=== PATIENT | female | born 1930 | race Caucasian/White ===

== ENCOUNTER 2016-12-03 11:27 | Outpatient (CLI) ==
[2016-12-03 11:50] LABS: HEMATOCRIT 35.2 % (37.0-47.0); HEMOGLOBIN 11.8 g/dl (12.0-16.0); MEAN CORPUSCULAR HGB CONC 33.5 (31.8-35.4); MEAN CORPUSCULAR VOLUME 92.4 fl (81.0-99.0); RED BLOOD COUNT 3.81 10^6/ul (4.20-5.40); WHITE BLOOD COUNT 5.99 K/ul (4.6-10.2)
[2016-12-03 11:59] LABS: BILIRUBIN,URINE Negative (NEGATIVE); KETONES,URINE Negative (NEGATIVE); LEUKOCYTE ESTERASE ,URINE Negative (NEGATIVE); NITRITE,URINE Negative (NEGATIVE); PROTEIN,URINE Negative (NEGATIVE); URINE, BLOOD Negative (NEGATIVE)
[2016-12-03 12:05] LABS: ADD URINE MICROSCOPIC NO
[2016-12-03 12:39] LABS: ALBUMIN 3.7 g/dL (3.4-5.0); ALBUMIN/GLOBULIN RATIO 1.28; ANION GAP 15.6; BILIRUBIN,TOTAL 0.75 mg/dL (0.00-1.20); BUN/CREATININE RATIO 15.03; CALCIUM 9.4 mg/dL (8.2-10.2); CREATININE 1.53 mg/dL (0.60-1.30); MAGNESIUM 1.8 mg/dL (1.7-2.2); PHOSPHORUS 3.9 mg/dL (2.8-4.1); POTASSIUM 4.6 mmol/L (3.5-5.10); TOTAL PROTEIN 6.6 g/dL (5.8-8.1); URIC ACID 6.3 mg/dL (2.4-6.0)
[2016-12-04 09:37] LABS: URINE CREATINE 13.5 mg/dL (Not Estab.)
[2016-12-04 15:55] LABS: URINE PROTEIN/CREATININE RATIO < 296 mg/g creat (0-200)
== END 2016-12-03 11:28 | disposition home or self-care (01) ==
LOC: LAB 11:27
PROVIDERS: ATTEND Nurse Practitioner
DX: N18.3 Chronic kidney disease, stage 3 (moderate) (principal); E55.9 Vitamin D deficiency, unspecified
CPT/HCPCS: 36415; 80053; 81001; 82306; 82570; 83735; 83970; 84100; 84156; 84550; 85027

== ENCOUNTER 2017-03-16 13:19 | Outpatient (CLI) ==
[2017-03-16 13:42] LABS: BASOPHILS % (AUTO) 0.5 % (0.0-3.0); EOSINOPHILS # (AUTO) 0.1 K/ul (0.0-0.7); EOSINOPHILS % (AUTO) 1.9 % (0.0-7.0); HEMATOCRIT 35.5 % (37.0-47.0); HEMOGLOBIN 11.8 g/dl (12.0-16.0); IMMATURE GRANULOCYTE % (AUTO) 0.7 % (0.0-5.0); LYMPHOCYTES # (AUTO) 1.5 K/uL (0.60-3.4); MEAN CORPUSCULAR HEMOGLOBIN 30.3 pg (27.0-31.0); MEAN CORPUSCULAR HGB CONC 33.2 (31.8-35.4); MONOCYTES # (AUTO) 0.4 K/uL (0.4-2.0); NEUTROPHILS # (AUTO) 3.8 K/ul (2.0-6.9); NEUTROPHILS % (AUTO) 64.9; PLATELET COUNT 159 10^3/uL (140-440); WHITE BLOOD COUNT 5.88 K/ul (4.6-10.2)
[2017-03-16 14:02] LABS: ALBUMIN 3.6 g/dL (3.4-5.0); ALBUMIN/GLOBULIN RATIO 1.2; ANION GAP 14.5; BILIRUBIN,TOTAL 0.75 mg/dL (0.00-1.20); BUN/CREATININE RATIO 9.79; CALCIUM 9.2 mg/dL (8.2-10.2); CREATININE 1.43 mg/dL (0.60-1.30); POTASSIUM 4.5 mmol/L (3.5-5.10); TOTAL PROTEIN 6.6 g/dL (5.8-8.1)
[2017-03-17 14:23] LABS: CARCINOEMBRYONIC ANTIGEN 2.7 ng/mL (0.0-4.7)
[2017-03-17 14:24] LABS: IMMUNOGLOBULIN M, QN, SERUM 49 mg/dL (26-217)
== END 2017-03-16 13:20 | disposition home or self-care (01) ==
LOC: LAB 13:19
PROVIDERS: ATTEND Internal Medicine Hematology & Oncology
DX: Z85.038 Personal history of other malignant neoplasm of large intestine (principal)
CPT/HCPCS: 36415; 80053; 82378; 85025; 86320

== ENCOUNTER 2017-06-02 11:15 | Outpatient (CLI) | payer OTHER ==
[2017-06-02 11:51] LABS: MEAN CORPUSCULAR HEMOGLOBIN 30.5 pg (27.0-31.0); MEAN CORPUSCULAR HGB CONC 33.3 (31.8-35.4); MEAN CORPUSCULAR VOLUME 91.4 fl (81.0-99.0); RED BLOOD COUNT 3.94 10^6/ul (4.20-5.40); WHITE BLOOD COUNT 6.18 K/ul (4.6-10.2)
[2017-06-02 11:52] LABS: BILIRUBIN,URINE Negative (NEGATIVE); KETONES,URINE Negative (NEGATIVE); LEUKOCYTE ESTERASE ,URINE 2+ (NEGATIVE); NITRITE,URINE Negative (NEGATIVE); PROTEIN,URINE Negative (NEGATIVE); URINE, BLOOD Negative (NEGATIVE)
[2017-06-02 11:57] LABS: ADD URINE MICROSCOPIC YES
[2017-06-02 11:58] LABS: BACTERIA,URINE 4+ (NOT PRESENT)
[2017-06-02 12:31] LABS: ALBUMIN 3.7 g/dL (3.4-5.0); ALBUMIN/GLOBULIN RATIO 1.37; ANION GAP 14.6; BILIRUBIN,TOTAL 0.85 mg/dL (0.00-1.20); BUN/CREATININE RATIO 10.73; CALCIUM 9.4 mg/dL (8.2-10.2); CREATININE 1.49 mg/dL (0.60-1.30); MAGNESIUM 1.9 mg/dL (1.7-2.2); POTASSIUM 4.6 mmol/L (3.5-5.10); TOTAL PROTEIN 6.4 g/dL (5.8-8.1); URIC ACID 5.8 mg/dL (2.4-6.0)
[2017-06-03 10:37] LABS: URINE CREATININE 48.7 mg/dL (Not Estab.); URINE TOTAL PROTEIN 15.7 mg/dL (Not Estab.)
== END 2017-06-02 11:16 | disposition home or self-care (01) ==
LOC: LAB 11:15
PROVIDERS: ATTEND Nurse Practitioner
DX: N18.3 Chronic kidney disease, stage 3 (moderate) (principal); E55.9 Vitamin D deficiency, unspecified
CPT/HCPCS: 36415; 80053; 81001; 82306; 82570; 83735; 83970; 84100; 84156; 84550; 85027

== ENCOUNTER 2017-11-23 10:59 | Outpatient (CLI) | END 2017-11-23 11:00 | disposition home or self-care (01) | LOC: LAB 10:59 | PROVIDERS: ATTEND Nurse Practitioner | DX: N18.3 Chronic kidney disease, stage 3 (moderate) (principal); E55.9 Vitamin D deficiency, unspecified | CPT/HCPCS: 36415; 80053; 81001; 82306; 82570; 83735; 83970; 84100; 84156; 84550; 85027 ==

== ENCOUNTER 2018-03-12 10:14 | Outpatient (CLI) | payer OTHER | END 2018-03-12 10:15 | disposition home or self-care (01) | LOC: LAB 10:14 | PROVIDERS: ATTEND Internal Medicine Hematology & Oncology | DX: N18.3 Chronic kidney disease, stage 3 (moderate) (principal); D63.1 Anemia in chronic kidney disease; Z85.038 Personal history of other malignant neoplasm of large intestine | CPT/HCPCS: 36415; 80053; 82378; 85025; 86320 ==

== ENCOUNTER 2018-03-24 09:34 | Outpatient (CLI) ==
[2018-03-24 09:56] VITALS: BP 135/63; TEMP 97.2
[2018-03-24] MEDS ORDERED: VITAMIN B-12 IM STA (10:01)
== END 2018-03-24 09:35 | disposition home or self-care (01) ==
LOC: OPMED 09:34
PROVIDERS: ATTEND Internal Medicine Hematology & Oncology
DX: E53.8 Deficiency of other specified B group vitamins (principal)
CPT/HCPCS: 96372

== ENCOUNTER 2018-03-25 09:47 | Outpatient (CLI) ==
[2018-03-25 10:01] VITALS: BP 133/66; TEMP 97.6
[2018-03-25] MEDS ORDERED: VITAMIN B-12 IM STA (10:02)
== END 2018-03-25 09:48 ==
LOC: OPMED 09:47
PROVIDERS: ATTEND Internal Medicine Hematology & Oncology
DX: E53.8 Deficiency of other specified B group vitamins (principal)
CPT/HCPCS: 96372

== ENCOUNTER 2018-03-26 09:36 | Outpatient (CLI) ==
[2018-03-26] MEDS ORDERED: VITAMIN B-12 IM STA (10:06)
[2018-03-26 10:10] VITALS: BP 129/63; TEMP 97.2
== END 2018-03-26 09:37 | disposition home or self-care (01) ==
LOC: OPMED 09:36
PROVIDERS: ATTEND Internal Medicine Hematology & Oncology
DX: E53.8 Deficiency of other specified B group vitamins (principal)
CPT/HCPCS: 96372

== ENCOUNTER 2018-03-31 11:04 | Outpatient (CLI) ==
[2018-03-31] MEDS ORDERED: VITAMIN B-12 IM STA (11:12)
== END 2018-03-31 11:05 | disposition home or self-care (01) ==
LOC: OPMED 11:04
PROVIDERS: ATTEND Internal Medicine Hematology & Oncology
DX: E53.8 Deficiency of other specified B group vitamins (principal)
CPT/HCPCS: 96372

== ENCOUNTER 2018-04-07 10:38 | Outpatient (CLI) ==
[2018-04-07] MEDS ORDERED: VITAMIN B-12 IM STA (10:53)
[2018-04-07 11:00] VITALS: BP 126/68; TEMP 97.5
== END 2018-04-07 10:39 | disposition home or self-care (01) ==
LOC: OPMED 10:38
PROVIDERS: ATTEND Internal Medicine Hematology & Oncology
DX: E53.8 Deficiency of other specified B group vitamins (principal)
CPT/HCPCS: 96372

== ENCOUNTER 2018-04-14 10:12 | Outpatient (CLI) | payer OTHER ==
[2018-04-14 10:49] VITALS: BP 124/66; TEMP 98.2
[2018-04-14] MEDS: VITAMIN B-12 IM STA (10:55)
== END 2018-04-14 10:13 | disposition home or self-care (01) ==
LOC: LAB 10:12 → OPMED 10:13
PROVIDERS: ATTEND Internal Medicine Hematology & Oncology
DX: E53.8 Deficiency of other specified B group vitamins (principal)
CPT/HCPCS: 96372

== ENCOUNTER 2018-04-21 09:08 | Outpatient (CLI) | payer OTHER ==
[2018-04-21 09:43] VITALS: BP 157/63; TEMP 96.5
[2018-04-21] MEDS ORDERED: VITAMIN B-12 IM STA (09:45)
== END 2018-04-21 09:09 | disposition home or self-care (01) ==
LOC: OPMED 09:08
PROVIDERS: ATTEND Internal Medicine Hematology & Oncology
DX: E53.8 Deficiency of other specified B group vitamins (principal)
CPT/HCPCS: 96372

== ENCOUNTER 2018-04-28 10:37 | Outpatient (CLI) | END 2018-04-28 10:38 | disposition home or self-care (01) | LOC: LAB 10:37 | PROVIDERS: ATTEND Internal Medicine Hematology & Oncology | DX: D64.9 Anemia, unspecified (principal); Z85.038 Personal history of other malignant neoplasm of large intestine | CPT/HCPCS: 36415; 82728; 83540; 83550; 85027 ==

== ENCOUNTER 2018-05-21 09:43 | Outpatient (CLI) | END 2018-05-21 09:44 | disposition home or self-care (01) | LOC: LAB 09:43 | PROVIDERS: ATTEND Nurse Practitioner | DX: N18.3 Chronic kidney disease, stage 3 (moderate) (principal); E55.9 Vitamin D deficiency, unspecified | CPT/HCPCS: 36415; 80053; 81001; 82306; 82570; 83735; 83970; 84100; 84156; 84550; 85025; 85027; 87086 ==

== ENCOUNTER 2018-11-29 10:59 | Outpatient (CLI) | payer OTHER | END 2018-11-29 11:00 | disposition home or self-care (01) | LOC: LAB 10:59 | PROVIDERS: ATTEND Nurse Practitioner | DX: N18.3 Chronic kidney disease, stage 3 (moderate) (principal); E55.9 Vitamin D deficiency, unspecified; Z79.899 Other long term (current) drug therapy | CPT/HCPCS: 36415; 80053; 81001; 82306; 82570; 83735; 83970; 84100; 84156; 84550; 85027 ==